=== PATIENT | female | born 1985 | race Caucasian/White ===

== ENCOUNTER 2020-12-17 09:38 | Outpatient (CLI) | payer BC, SELFPAY ==
[2020-12-17 09:54] VITALS: BMI 26.1
--- NOTE | 2020-12-17 10:09 | SUR.PREOP ---
WAIVER Discussed need for HCG screening prior to today's exam. Patient wished to sign a waiver as she is certain she is not . Discussed reasoning for screening and she understands the risks associated to a fetus. Waiver signed. Nuclear medicine notified.
--- NOTE | 2020-12-17 10:18 | NMCV_ITS ---
NM alonso perf SPECT r/s* [id number] Alka Pettit Age: 35 Gender: F : 1985 Exam Date: 12/17/2020 10:56 Ordering Phys: Hany Shah MD Technologist: RADHA Mustafa Exam Location: [facility] Indications: CHEST PAIN STRESS TEST [facility] IMAGE PROTOCOL Rest/Stress 1 Exercise Day Radiopharmaceutical Dose (mCi) Administration Site Administered by Rest: Tc-99m 10.9 IV RADHA Lantigua Sestamibi Stress:Tc-99m 32.6 IV RADHA Lantigua Sestamibi Rest: 17-Dec-2020 60 Discovery 630 Stress: 17-Dec-2020 15 Discovery 630 Radiopharmaceutical was injected at 100% maximum heart rate. Images obtained in supine and prone position. SPECT RESULTS Technical Quality: Excellent Raw Data Analysis: Normal Image Corrections: No attenuation or motion correction applied Summed Stress Score: 0 Summed Rest Score: 0 Summed Difference Score: 0 PERFUSION FINDINGS Small sized perfusion abnormality of mild severity of mid anterior wall on supine stress images with improved tracer uptake in prone stress images. This likely represents breast attenuation artifact. FUNCTIONAL RESULTS (calculated via Gated SPECT) Stress Image LV EF (%): 81 Stress EDV (mL):57 TID: 0.67 Stress ESV (mL):11 FUNCTIONAL FINDINGS: The left ventricle is normal in size. Transient Ischemia Dilatation of 0.67. There is normal left ventricular systolic function. The left ventricular ejection fraction is normal with a value of 81%. There is normal left ventricular wall thickening with no regional wall motion abnormality. Normal end diastolic and end systolic volumes. IMPRESSIONS 1. Myocardial perfusion imaging is normal. Breast attenuation artifact in mid anterior wall. 2. Overall left ventricular systolic function is normal without regional wall motion abnormalities. 3. The left ventricular ejection fraction is normal with a value of 81%. 4. Scan indicates low risk for cardiac events. Tamara Cuba MD (Electronically Signed) Final Date: 18 December 2020 07:29 S
--- NOTE | 2020-12-17 10:18 | ECG_ITS ---
[facility] Test Date: 2020-12-17 Pat Name: Alka Pettit Department: Room: Gender: Female Front End Web Designer: : 1985 Requested By: Hany Mendoza Order Number: [id number] aVldez MD: Tamara Cuba M.D. Interpretive Statements NAME OF STUDY: EXERCISE SESTAMIBI STRESS TEST INDICATION: Exertional Chest Pain Baseline blood pressure of 132/90 mm Hg, heart rate 115 beats per minute and oxygen saturation 95%. EKG showed sinus tachycardia rightward axis. Normal ST-Ts. The patient exercised for 7 minutes on a standard Gustabo protocol. Patient attained a maximum heart rate of 190 beats per minute(103% of the maximum predicted heart rate) with a blood pressure at the peak exercise of 183/100 mm Hg. The EKG at the peak exercise revealed 1 to [address] depression in inferolateral leads. Patient had some chest pain and exertional shortness of breath that resolved by the end of the study. Isolated PVCs and PVC couplets noted at peak exercise the study was terminated due to intraprocedural shortness of breath and chest pain. During the recovery phase, there were no new changes. Isolated PVCs noted in recovery. Blood pressure at the end of the recovery phase was 121/85 mm Hg with a heart rate of 119 beats per minute and oxygen saturation 95%. CONCLUSION: 1. Equivocal EKG response to treadmill exercise. 2. No exercise-induced chest pain or cardiac arrhythmia 3. Good exercise tolerance, attained a maximum of 10.2 METs. Maximum VO2 of 35.7 mL/kg/min. 4. Baseline normal blood pressure with normal response to exercise. 5. Perfusion scan will be documented separately. Electronically Signed On 12-18-2020 14:14:08 CDT by Tamara Cuba M.D. [id number]
[2020-12-17 12:06] VITALS: BP 128/64; PULSE 119
== END 2020-12-17 09:39 | disposition home or self-care (01) ==
PROVIDERS: PCP Family Medicine; Visit Provider Family Medicine
DX: R07.89 Other chest pain (principal)
CPT/HCPCS: 78452; 93017; A9500

== ENCOUNTER → 2021-07-10 14:26 | Outpatient (BNVA) | payer BC, SELFPAY | PROVIDERS: PCP Family Medicine; Visit Provider Nurse Practitioner Women's Health | DX: Z01.419 Encounter for gynecological examination (general) (routine) without abnormal findings (principal) | CPT/HCPCS: 87624 ==

== ENCOUNTER 2023-11-15 08:04 | Outpatient (CLI) | payer BC, SELFPAY ==
--- NOTE | 2023-11-15 08:30 | MM_ITS ---
WS: [id number] BILATERAL SCREENING DIGITAL TOMOSYNTHESIS MAMMOGRAM WITH CAD HISTORY: Z12.39 - Encounter for other screening for malignant neop... COMPARISON: None available. Bilateral CC and MLO views with tomosynthesis and synthetic mammography submitted. Computer aided det ection analyzed. Breast composition: The breasts are heterogeneously dense, which may obscure small masses. No suspici ous masses, microcalcifications or architectural distortion. Benign appearing group of calcifications in the central LEFT breast. No distortion. MM/[place] [id number] IMPRESSION: BI-RADS: 2-Benign FOLLOW UP: 1 Year Follow-up
== END 2023-11-15 08:05 | disposition home or self-care (01) ==
LOC: RAD 08:06
PROVIDERS: PCP Family Medicine; Visit Provider Nurse Practitioner Women's Health
DX: Z12.39 Encounter for other screening for malignant neoplasm of breast (principal); R92.333 Mammographic heterogeneous density, bilateral breasts; R92.1 Mammographic calcification found on diagnostic imaging of breast
CPT/HCPCS: 77063; 77067

== ENCOUNTER 2024-04-06 08:04 | Outpatient (CLI) | payer BC, SELFPAY ==
--- NOTE | 2024-04-06 | ECG_ITS ---
[facility] Test Date: 2024-04-06 Pat Name: Alka Pettit Department: Room: Gender: Female Senior Data Developer: : 1985 Requested By: Hany Mendoza Order Number: [id number] Courtney MD: WAYNE BROWN Interpretive Statements Lung unchanged pre/post procedure; Intraprocedure shortess of breath; Symptoms resoled by discharge EXERCISE DATA: The patient was exercised by Gustabo protocol. Baseline heart rate was 85 beats per minute. Baseline blood pressure was 122/88 millimeters of mercury. Target heart rate was 180 beats per minute. Maximum heart rate achieved was 173 which was 96% of the target heart rate. Maximum blood pressure was 164/110 millimeters of mercury. Total exercise time was 5 minutes 59 seconds maximum METs achieved was 7 maximum VO2 was 24.5. The reason for ending the test was maximum effort achieved, the patient complained of shortness of breath during the stress test, which then resolved at the end of the test. ELECTROCARDIOGRAM: BASELINE: Showed sinus rhythm, normal axis, no significant ST-T changes at the baseline noted. [] EXERCISE: At the peak exercise level, [] No significant ST-T changes suggestive of ischemia noted. [] RECOVERY: During the recovery period, heart rate dropped appropriately. No significant ST-T changes in the recovery suggestive of ischemia noted. [] CONCLUSION: 1. Exercise capacity fair 2. Heart rate response was [appropriate]. 3. Blood pressure response was [appropriate]. 4. Symptoms not suggestive of ischemia. 5. Electrocardiogram portion of the stress test was not suggestive of ischemia. Electronically Signed On 04-09-2024 21:27:40 CONTRACT DRIVER by WAYNE BROWN [email or web address]
[2024-04-06 08:26] VITALS: BMI 21.7
--- NOTE | 2024-04-06 08:26 | NMCV_ITS ---
NM alonso perf SPECT r/s* [id number] Alka Pettit Age: 38 Gender: F : 1985 Exam Date: 04/06/2024 08:26 Ordering Phys: Hany Shah MD Technologist: RADHA Westbrook Exam Location: [facility] Indications: cp STRESS TEST [facility] IMAGE PROTOCOL Rest/Stress 1 Lexiscan Day Radiopharmaceutical Dose (mCi) Administration Site Administered by Rest: Tc-99m 10.4 IV RADHA Westbrook Sestamibi Stress:Tc-99m 32.7 IV RADHA Lantigua Sestamibi Rest: 06-Apr-2024 60 Discovery 630 Stress: 06-Apr-2024 30 Discovery 630 0.4mg Lexiscan. Images obtained in supine and prone position. SPECT RESULTS Technical Quality: Good Raw Data Analysis: Normal Image Corrections: No attenuation or motion correction applied Summed Stress Score: 0 Summed Rest Score: 0 Summed Difference Score: 0 PERFUSION FINDINGS SPECT images demonstrate homogeneous tracer distribution throughout the myocardium. FUNCTIONAL RESULTS (calculated via Gated SPECT) Stress Image LV EF (%): 74 Stress EDV (mL):58 TID: 0.8 Stress ESV (mL):15 FUNCTIONAL FINDINGS: There is normal left ventricular systolic function. IMPRESSIONS 1. Normal myocardial perfusion imaging with no evidence of ischemia. 2. LV systolic function is normal Vinicius Nieto MD (Electronically Signed) Final Date: 06 April 2024 14:00 S
--- NOTE | 2024-04-06 08:30 | SUR.PREOP ---
test Waiver form Pt denies history of hysterectomy or tubal ligation. Pt reports is on menstrual period. Declines testing, waiver signed and scanned into chart.
[2024-04-06 11:02] VITALS: BP 138/88; PULSE 94
== END 2024-04-06 08:05 | disposition home or self-care (01) ==
LOC: CDL 08:04
PROVIDERS: PCP Family Medicine; Visit Provider Family Medicine
DX: R07.9 Chest pain, unspecified (principal); R06.02 Shortness of breath
CPT/HCPCS: 36415; 78452; 93017; A9500

== ENCOUNTER 2024-11-09 07:18 | Oncology outpatient (recurring) (ONCR) | payer BC, SELFPAY | END 2024-12-02 23:59 | disposition home or self-care (01) | PROVIDERS: PCP Family Medicine; Visit Provider Nurse Practitioner Women's Health | DX: R41.89 Other symptoms and signs involving cognitive functions and awareness (principal); R53.83 Other fatigue | CPT/HCPCS: 36415; 80053; 82306; 82607; 82728; 83540; 84439; 84443; 85025 ==

== ENCOUNTER 2024-11-16 11:38 | Outpatient (CLI) | payer BC, SELFPAY ==
--- NOTE | 2024-11-16 11:45 | MM_ITS ---
WS: [id number] BILATERAL 3D TOMOSYNTHESIS DIGITAL SCREENING MAMMOGRAM WITH CAD CLINICAL INFORMATION: ANNUAL SCREEN HISTORY: Screening mammogram. No current complaints. COMPARISON: 2023 TECHNIQUE: Bilateral CC and MLO. FINDINGS: The breast are composed of extremely dense tissue, which can limit the detection of small underlying mass lesions. No suspicious focal mass, asymmetry, calcifications, or architectural distortion. No evidence of malignancy. Incidental punctate and clustered calcifications. MM/MM scr tomosynthesis [id number] IMPRESSION: DENSITY: The breasts are heterogeneously dense, which may obscure small masses. BI-RADS: 2 - Benign FOLLOW UP: 1 Year Follow-up Recommend return to annual screening mammography.
== END 2024-11-16 11:39 | disposition home or self-care (01) ==
PROVIDERS: Family Provider Nurse Practitioner Women's Health; PCP Family Medicine; Visit Provider Family Medicine
DX: Z12.31 Encounter for screening mammogram for malignant neoplasm of breast (principal); R92.343 Mammographic extreme density, bilateral breasts; R92.1 Mammographic calcification found on diagnostic imaging of breast
CPT/HCPCS: 77063; 77067

== ENCOUNTER 2025-01-17 06:00 | Outpatient (CLI) | payer BC, SELFPAY ==
--- NOTE | 2025-01-17 06:33 | USCV_ITS ---
Alka Pettit Age: 39 Gender: F : 1985 Exam Date: 01/17/2025 06:45 Ordering Phys: Hany Shah MD Technologist: MANI Exam Location: [facility] [place] Indication: Mitral Prolapse BP: 138 / 92 HR: 70 Rhythm: Sinus Technical Quality: Adequate MEASUREMENTS (Male / Female) Normal Values 2D ECHO LV Diastolic Diameter PLAX 3.5 cm 4.2 - 5.9 / 3.9 - 5.3 cm IVS Diastolic Thickness 0.7 cm 0.6 - 1.0 / 0.6 - 0.9 cm IVS Systolic Thickness 1.4 cm LVPW Diastolic Thickness 1.6 cm 0.6 - 1.0 / 0.6 - 0.9 cm LVPW Systolic Thickness 1.4 cm LVOT Diameter 2.0 cm LV Ejection Fraction 2D Teich 63.7 % LV Ejection Fraction MOD 4C 55.3 % LV Ejection Fraction MOD 2C 58.5 % LV Ejection Fraction 2C AL 60.8 % LA Diameter 2.6 cm RA Systolic Volume 4C AL 21.1 ml RA Systolic Volume 4C MOD 19.5 ml LA Sys Volume AL 21.8 cm cubed LA Sys Volume Index AL 13.2 cm cubed/m squared Aorta at Sinotubular Diameter 2.9 cm IVC Diameter 1.2 cm M-MODE LA Ao Ratio MM 0.9 AV Cusp Separation MM 1.6 cm DOPPLER AV Peak Velocity 101.0 cm/s LVOT Peak Velocity 73.0 cm/s AV Area Cont Eq vti 2.1 cm squared AV Area Cont Eq pk 2.2 cm squared MV Peak Velocity 92.0 cm/s MV Area PHT 4.8 cm squared Mitral E to A Ratio 1.6 TR Peak Velocity 98.0 cm/s TR Peak Gradient 3.8 mmHg TV Peak E Velocity 75.0 cm/s PV Peak Velocity 64.0 cm/s FINDINGS Left Ventricle Normal left ventricular size, systolic function and wall thickness, with no regional wall motion abnormalities. Left ventricular ejection fraction is estimated at 60 %. Normal diastolic function. Right Ventricle Normal right ventricular size and systolic function. Right Atrium Normal right atrial size. Left Atrium Normal left atrial size. IA Septum Normal appearance of the interatrial septum. Mitral Valve Mildly thickened mitral valve. No mitral valve stenosis. Trace mitral valve regurgitation. Aortic Valve Mild aortic valve calcification. No aortic valve stenosis. Trace aortic valve regurgitation. Tricuspid Valve Normal tricuspid valve structure. No tricuspid valve stenosis or regurgitation. Normal pulmonary pressure. Pulmonic Valve Normal pulmonic valve structure. No pulmonic valve stenosis or regurgitation. Pericardium No pericardial effusion. Aorta Normal diameter of the aortic root and ascending thoracic aorta. IVC Normal IVC diameter. CONCLUSIONS Normal left ventricular size, systolic function and wall thickness, with no regional wall motion abnormalities. Left ventricular ejection fraction is estimated at 60 %. Normal diastolic function. There is no pericardial effusion. Mildly thickened mitral valve. No mitral valve stenosis. Trace mitral valve regurgitation. Mild aortic valve calcification. No aortic valve stenosis. Trace aortic valve regurgitation. Right atrial pressure is around 5 mm of mercury. Angeli Chirinos MD (Electronically Signed) Final Date: 27 January 2025 00:06 S
== END 2025-01-17 06:01 | disposition home or self-care (01) ==
LOC: RAD 06:00
PROVIDERS: PCP Family Medicine; Visit Provider Family Medicine
DX: I34.1 Nonrheumatic mitral (valve) prolapse (principal); I34.0 Nonrheumatic mitral (valve) insufficiency; I35.8 Other nonrheumatic aortic valve disorders; I35.1 Nonrheumatic aortic (valve) insufficiency
CPT/HCPCS: 93306

== ENCOUNTER → 2025-02-12 13:13 | Outpatient (BNVA) | payer BC, SELFPAY | PROVIDERS: PCP Family Medicine; Visit Provider Nurse Practitioner Women's Health | DX: R41.89 Other symptoms and signs involving cognitive functions and awareness (principal); R53.83 Other fatigue | CPT/HCPCS: 84270; 84402; 84403 ==

== ENCOUNTER 2025-03-15 08:29 | Oncology outpatient (recurring) (ONCR) | payer BC, SELFPAY | END 2025-04-03 23:59 | disposition home or self-care (01) | PROVIDERS: PCP Family Medicine; Visit Provider Nurse Practitioner Women's Health | DX: R41.89 Other symptoms and signs involving cognitive functions and awareness (principal); R53.83 Other fatigue | CPT/HCPCS: 36415; 84403 ==